=== PATIENT | female | born 1995 | race Caucasian/White ===

== ENCOUNTER 2023-01-30 18:45 | Inpatient (IN) | payer OTHER ==
[2023-01-30] MEDS ORDERED: ELECTROLYTE-148 SOLN 1,000 ML IV SCH (20:00)
[2023-01-30] MEDS ORDERED: OXYTOCIN 20 UNITS in 0.9% NS 20 UNIT/1,000 ML INFUS.BAG IV ONE (20:01)
[2023-01-30] MEDS ORDERED: LIDOCAINE HCL 1% PRESERVATIVE FREE - 30ML VIAL ONE (20:02)
[2023-01-30] MEDS ORDERED: WITCH HAZEL 50% (TUCKS) 40 PAD/JAR PAD TP PRN (20:10)
[2023-01-30] MEDS ORDERED: METHYLERGONOVINE MALEATE 0.2 MG/1 ML AMP IM PRN (20:10)
[2023-01-30] MEDS ORDERED: oxyCODONE HCL 5 MG TABLET PO PRN (20:10)
[2023-01-30] MEDS ORDERED: BISACODYL 10 MG SUPP.RECT RC PRN (20:10)
[2023-01-30] MEDS ORDERED: BENZOCAINE 20% 57 GM BOTTLE TP PRN (20:10)
[2023-01-30] MEDS ORDERED: ACETAMINOPHEN 325 MG TABLET (FP) PO PRN (20:10)
[2023-01-30] MEDS ORDERED: BENZOCAINE 28 GM HEMORRHOIDAL OINTMENT TP PRN (20:10)
[2023-01-30] MEDS ORDERED: OXYTOCIN 20 UNITS in 0.9% NS 20 UNIT/1,000 ML INFUS.BAG IV SCH (20:15)
[2023-01-30] MEDS ORDERED: IBUPROFEN 600 MG TABLET (FP) PO ONE (20:29)
[2023-01-30 20:44] LABS: BASO % 0.1 % (0-2.0); EOS % 0.8 % (0-4.5); HEMATOCRIT 32.7 % (32.4-45.2); HEMOGLOBIN 10.8 GM/dL (10.7-15.3); LYMPH % 16.5 % (8-40); MCH 27.2 pg (25.7-33.7); MCHC 33.1 g/dl (32.0-36.0); MEAN CELL VOLUME 82.2 fl (80-96); MEAN PLT VOLUME 8.3 fl (7.5-11.1); NEUT % 76.6 % (42.8-82.8); PLATELET COUNT 313 10^3/uL (134-434); RBC 3.97 M/mm3 (3.60-5.2); RDW 14.8 % (11.6-15.6); WHITE BLOOD COUNT 9.4 K/mm3 (4.0-10.0)
[2023-01-30 20:49] LABS: CALCIUM 8.5 mg/dL (8.5-10.1)
[2023-01-30 20:50] LABS: BLOOD UREA NITROGEN 9.3 mg/dL (7-18)
[2023-01-30 20:53] LABS: CREATININE 0.4 mg/dL (0.55-1.3)
[2023-01-30 20:58] LABS: INR 0.97 (0.83-1.09); PROTHROMBIN TIME (PATIENT) 11.2 SEC (9.7-13.0)
[2023-01-30 21:00] LABS: CORD BASE EXCESS -5.7 mmol/L (0-2); CORD PCO2 56.8 mmHg (30-78); CORD pH 7.225 (7.14-7.44)
[2023-01-30] MEDS: IBUPROFEN 600 MG TABLET (FP) PO PRN (21:00)
[2023-01-30 21:01] LABS: ACTIVATED PTT 26.5 SECONDS (25.2-36.5)
[2023-01-30 21:03] LABS: CORD HCO3 21.8 mmHg (20-29); CORD PCO2 38.8 mmHg (30-78); CORD pH 7.368 (7.14-7.44)
[2023-01-30 21:14] VITALS: BMI 34.7
[2023-01-31 08:38] LABS: BASO % 0.2 % (0-2.0); EOS % 0.7 % (0-4.5); HEMATOCRIT 28.8 % (32.4-45.2); HEMOGLOBIN 9.7 GM/dL (10.7-15.3); LYMPH % 19.5 % (8-40); MCH 27.8 pg (25.7-33.7); MCHC 33.8 g/dl (32.0-36.0); MEAN CELL VOLUME 82.3 fl (80-96); MEAN PLT VOLUME 8.3 fl (7.5-11.1); MONO % 7.4 % (3.8-10.2); NEUT % 72.2 % (42.8-82.8); PLATELET COUNT 269 10^3/uL (134-434); WHITE BLOOD COUNT 10.6 K/mm3 (4.0-10.0)
[2023-01-31] MEDS: PRENATAL VITAMINS W/ FOLIC ACID TABLET (FP) PO SCH (09:13)
[2023-01-31] MEDS: IBUPROFEN 600 MG TABLET (FP) PO PRN ×2 (09:13→17:28)
[2023-01-31] MEDS ORDERED: SENNOSIDES/DOCUSATE COMBO (SENNA PLUS) TABLET (UD) PO PRN (22:00)
[2023-02-01] MEDS: IBUPROFEN 600 MG TABLET (FP) PO PRN (06:22)
[2023-02-01 09:06] VITALS: BP 98/66; PULSE 74; RESP 15; TEMP 98.3
[2023-02-01] MEDS: PRENATAL VITAMINS W/ FOLIC ACID TABLET (FP) PO SCH (10:04)
== END 2023-02-01 13:30 | disposition home or self-care (01) | DRG 560 ==
LOC: JLDR 18:45 → J3W 22:28
PROVIDERS: ADMIT Obstetrics & Gynecology; ATTEND Obstetrics & Gynecology
PROC: 10E0XZZ Delivery of Products of Conception, External Approach (ICD-10-PCS; principal; 2023-01-30)
DX: O80 Encounter for full-term uncomplicated delivery (principal); Z3A.39 39 weeks gestation of pregnancy; Z37.0 Single live birth
CPT/HCPCS: 36415; 36600; 59409; 80048; 82803; 85025; 85610; 85730; 86780; 86850; 86900; 86901; C9803-CS; U0003; U0005

== ENCOUNTER 2023-04-18 16:23 | Emergency (ER) | payer OTHER ==
[2023-04-18 16:30] VITALS: BP 121/83; PULSE 87; RESP 18; TEMP 98.7; BMI 32.1
== END 2023-04-18 17:51 | disposition home or self-care (01) ==
LOC: JERFT 16:23
DX: S09.21XA Traumatic rupture of right ear drum, initial encounter (principal); H11.31 Conjunctival hemorrhage, right eye; H93.11 Tinnitus, right ear; R51.9 Headache, unspecified; H66.91 Otitis media, unspecified, right ear; Y04.0XXA Assault by unarmed brawl or fight, initial encounter; Y93.9 Activity, unspecified; Y92.009 Unspecified place in unspecified non-institutional (private) residence as the place of occurrence of the external cause
CPT/HCPCS: 99283-25